=== PATIENT | female | born 1945 | race Caucasian/White ===

== ENCOUNTER 2018-06-28 10:42 | Outpatient (REF) | payer MEDICARE, OTHER, SELFPAY | END 2018-06-28 11:02 | LOC: NCHCN 10:42 | PROVIDERS: PCP Physician Assistant; Visit Provider Physician Assistant Medical | DX: N39.0 Urinary tract infection, site not specified (principal) | CPT/HCPCS: 87077; 87086; 87186 ==

== ENCOUNTER 2018-08-13 10:54 | Outpatient (REF) | payer MEDICARE, OTHER, SELFPAY | END 2018-08-13 11:14 | LOC: NCHCN 10:54 | PROVIDERS: PCP Physician Assistant; Visit Provider Nurse Practitioner Family | DX: N39.0 Urinary tract infection, site not specified (principal) | CPT/HCPCS: 87086; 87480; 87510; 87660 ==

== ENCOUNTER 2022-01-08 14:57 | Outpatient (REF) | payer MEDICARE, OTHER, SELFPAY | END 2022-01-08 14:58 | disposition home or self-care (01) | LOC: NCHCN 14:57 | PROVIDERS: PCP Physician Assistant; Visit Provider Physician Assistant | DX: R30.0 Dysuria (principal) | CPT/HCPCS: 87077; 87086; 87186 ==

== ENCOUNTER 2022-12-24 11:18 | Outpatient (REF) | payer MEDICARE, OTHER, SELFPAY ==
[2022-12-24 20:03] LABS: ALT 28 U/L (14-59); AST 18 U/L (15-37); Alkaline Phosphatase 153 U/L (46-116); BUN 33 mg/dL (7-18); Bilirubin, Total 0.4 mg/dL (0.2-1.0); CREATININE 0.9 mg/dL (0.55-1.02); Calcium 10.1 mg/dL (8.5-10.1); Chloride 102 mmol/L (98-107); Estimated GFR 66.67 (mL/min/1.73m2); Glucose 111 mg/dL (74-106); LDL CHOLESTEROL 86 mg/dL (<100); Potassium 3.5 mmol/L (3.5-5.1); Sodium 138 mmol/L (136-145); Total Protein 8.4 g/dL (6.4-8.2)
== END 2022-12-24 11:19 | disposition home or self-care (01) ==
LOC: NCHCN 11:18
PROVIDERS: PCP Physician Assistant; Visit Provider Physician Assistant
DX: E11.9 Type 2 diabetes mellitus without complications (principal); I10 Essential (primary) hypertension
CPT/HCPCS: 80053; 83721

== ENCOUNTER 2023-12-09 17:43 | Outpatient (REF) | payer MEDICARE, SELFPAY ==
[2023-12-09 20:55] LABS: ALT 23 U/L (14-59); AST 17 U/L (15-37); Alkaline Phosphatase 190 U/L (46-116); Anion Gap 10.5 mmol/L (3-11); BUN 31 mg/dL (7-18); Bilirubin, Total 0.42 mg/dL (0.2-1.0); CO2 27.5 mmol/L (21.0-32.0); Calcium 9.8 mg/dL (8.5-10.1); Chloride 102 mmol/L (98-107); Estimated GFR 58.39 (mL/min/1.73m2); Glucose 135 mg/dL (74-106); Potassium 3.5 mmol/L (3.5-5.1); Sodium 140 mmol/L (136-145); Total Protein 8.5 g/dL (6.4-8.2)
[2023-12-10 20:08] LABS: Hepatitis C Ab w Rflx HCV PCR Negative (Negative)
== END 2023-12-09 17:44 | disposition home or self-care (01) ==
LOC: NCHCN 17:43
PROVIDERS: PCP Physician Assistant; Visit Provider Physician Assistant
DX: E11.9 Type 2 diabetes mellitus without complications (principal); Z11.59 Encounter for screening for other viral diseases
CPT/HCPCS: 80053; 86803

== ENCOUNTER 2024-12-15 08:54 | Outpatient (REF) | payer MEDICARE, SELFPAY ==
[2024-12-15 19:46] LABS: ALT 26 U/L (14-59); AST 22 U/L (15-37); Albumin 4.1 g/dL (3.4-5.0); Alkaline Phosphatase 175 U/L (46-116); Anion Gap 15.2 mmol/L (3-11); BUN 28 mg/dL (7-18); Bilirubin, Total 0.4 mg/dL (0.2-1.0); CO2 23.8 mmol/L (21.0-32.0); Calcium 9.1 mg/dL (8.5-10.1); Calculated LDL 71 mg/dL (<100); Chloride 101 mmol/L (98-107); Cholesterol 191 mg/dL (<200); Estimated GFR 42.35 (mL/min/1.73m2); Glucose 186 mg/dL (74-106); HDL Cholesterol 72 mg/dL (>or=50); Potassium 3.6 mmol/L (3.5-5.1); Sodium 140 mmol/L (136-145); Total Protein 8.0 g/dL (6.4-8.2); Triglyceride 244 mg/dL (<150)
== END 2024-12-15 08:55 | disposition home or self-care (01) ==
LOC: NCHCN 08:54
PROVIDERS: PCP Physician Assistant; Visit Provider Physician Assistant
DX: E11.9 Type 2 diabetes mellitus without complications (principal)
CPT/HCPCS: 80053; 80061